=== PATIENT | male | born 1945 | race Caucasian/White ===

== ENCOUNTER 2016-09-04 10:17 | Emergency (ER) | payer OTHER, MEDICARE ==
[2016-09-04 10:24] VITALS: TEMP 98.4
--- NOTE | 2016-09-04 10:59 | EDPHY ---
H & P Time Seen by Provider: 09/04/16 10:53 HPI/ROS: CHIEF COMPLAINT: Chills, fever HISTORY OF PRESENT ILLNESS: This patient is a 70 year old male complaining of fever and chills onset Saturday morning, four days ago. He went on a 6 mile trail run that morning with friends, and began to feel unwell at breakfast with chills and loss of appetite. On his way home, he took a wrong turn, which he has never done before. Since then, he has had two episodes per day of chills and headache, each lasting about two hours. He feels well between episodes. He endorses reduced appetite. Last night, he felt well before bed around 20:00, but woke around midnight with another episode of chills. No nausea, chest pain, shortness of breath. He has travelled recently to [place] and [place] in June, two months ago. REVIEW OF SYSTEMS: Constitutional: Fever, chills Eyes: No visual changes ENT: No sore throat Respiratory: No cough, no shortness of breath Cardiac: No chest pain Gastrointestinal: No nausea, no vomiting, no abdominal pain Genitourinary: No hematuria, no dysuria Musculoskeletal: No leg pain or swelling Skin: No rash Neurological: No headache, no numbness, no weakness Psychiatric: No depression Past Medical/Surgical History: Right foot surgery. Social History: at bedside Smoking Status: Never smoked Physical Exam: General Appearance: Alert, well appearing, no distress Eyes: Pupils equal and round, no conjunctival pallor or injection ENT, Mouth: Mucous membranes moist Neck: Normal inspection Respiratory: Lungs are clear to auscultation Cardiovascular: Regular rate and rhythm Gastrointestinal: Abdomen is soft and non- tender Neurological: A&O, nonfocal, normal gait Skin: Warm and dry, no rash Extremities: Nontender, no pedal edema Psychiatric: Mood and affect normal Constitutional: Initial Vital Signs Temperature (C) 36.9 C 09/04/16 10:21 Heart Rate 76 09/04/16 10:21 Respiratory Rate 20 09/04/16 10:21 Blood Pressure 116/80 09/04/16 10:21 O2 Sat (%) 95 09/04/16 10:21 O2 Delivery Mode Room Air Allergies/Adverse Reactions: No Known Allergies Allergy (Unverified 09/04/16 10:21) Home Medications: Medication Instructions Recorded NK [No Known Home Meds] 09/04/16 Medical Decision Making - Diagnostics Imaging Results: Imaging Impressions Chest X-Ray 09/04/16 10:54 Impression: 1. Mild bronchitis. 2. COPD. 3. No definite pneumonia. ED Course/Re-evaluation: This patient presents with a four-day history of fever and chills. He has no localizing signs on exam. He traveled to [facility] in June. I reviewed [facility] website: no malaria in [place]. I do not suspect another travel rated illness. Plan for chest x-ray and labs including CBC, BMP, UA. Chest x-ray negative for pneumonia. Urinalysis unremarkable. CBC shows a normal white blood cell count with predominance of monocytes, consistent with a viral syndrome. I feel that he is safe and stable for discharge home. Will follow up with his primary care physician in 1-2 days for recheck. Differential Diagnosis: The differential diagnosis for the patient's fever included but was not limited to pneumonia, urinary tract infection, viral syndrome, meningitis, and sepsis. - Data Points Laboratory Results: Laboratory Results 09/04/16 10:40 09/04/16 10:40 09/04/16 09/04/16 09/04/16 10:45 10:40 10:40 WBC 5.91 10^3/uL 10^3/uL (3.80-9.50) RBC 5.00 10^6/uL 10^6/uL (4.40-6.38) Hgb 15.4 g/dL g/dL (13.7-17.5) Hct 44.6 % % (40.0-51.0) MCV 89.2 fL fL (81.5-99.8) MCH 30.8 pg pg (27.9-34.1) MCHC 34.5 g/dL g/dL (32.4-36.7) RDW 13.7 % % (11.5-15.2) Plt Count 113 10^3/uL L 10^3/uL (150-400) MPV 12.0 fL H fL (8.7-11.7) Neut % (Auto) 67.8 % % (39.3-74.2) Lymph % (Auto) 14.0 % L % (15.0-45.0) [place] % (Auto) 16.2 % H % (4.5-13.0) Eos % (Auto) 0.5 % L % (0.6-7.6) Baso % (Auto) 1.0 % % (0.3-1.7) Nucleat RBC Rel Count 0.0 % % (0.0-0.2) Absolute Neuts (auto) 4.00 10^3/uL 10^3/uL (1.70-6.50) Absolute Lymphs (auto) 0.83 10^3/uL L 10^3/uL (1.00-3.00) Absolute Monos (auto) 0.96 10^3/uL H 10^3/uL (0.30-0.80) Absolute Eos (auto) 0.03 10^3/uL 10^3/uL (0.03-0.40) Absolute Basos (auto) 0.06 10^3/uL 10^3/uL (0.02-0.10) Absolute Nucleated RBC 0.00 10^3/uL 10^3/uL (0-0.01) Immature Gran % 0.5 % % (0.0-1.1) Immature Gran # 0.03 10^3/uL 10^3/uL (0.00-0.10) Sodium 139 mEq/L mEq/L (134-144) Potassium 4.0 mEq/L mEq/L (3.5-5.2) Chloride 100 mEq/L mEq/L (97-110) Carbon Dioxide 21 mEq/l L mEq/l (22-31) Anion Gap 18 mEq/L H mEq/L (8-16) BUN 22 mg/dL mg/dL (7-23) Creatinine 1.2 mg/dL mg/dL (0.7-1.3) Estimated GFR 60 Glucose 124 mg/dL H mg/dL (70-100) Calcium 9.4 mg/dL mg/dL (8.5-10.4) Urine Color YELLOW Urine Appearance HAZY Urine pH 5.0 (5.0-7.5) Ur Specific [place] 1.025 (1.002-1.030) Urine Protein 1+ H (NEGATIVE) Urine Ketones NEGATIVE (NEGATIVE) Urine Blood 2+ H (NEGATIVE) Urine Nitrate NEGATIVE (NEGATIVE) Urine Bilirubin NEGATIVE (NEGATIVE) Urine Urobilinogen NEGATIVE EU EU (0.2-1.0) Ur Leukocyte Esterase NEGATIVE (NEGATIVE) Urine RBC 1-3 /hpf /hpf (0-3) Urine WBC 1-3 /hpf /hpf (0-3) Ur Epithelial Cells NONE SEEN /lpf /lpf (NONE-1+) Urine Mucus 2+ /lpf H /lpf (NONE-1+) Urine Glucose NEGATIVE (NEGATIVE) Departure - Departure Disposition: Home, Routine, Self-Care Clinical Impression: Fever Qualifiers: Fever type: unspecified Qualified Code(s): R50.9 - Fever, unspecified Condition: Good Instructions: Fever in Adults (ED) Additional Instructions: Ibuprofen 600 mg 3 times daily while the fever persists. Referrals: ABE TRACY [Primary Care Provider] - 1-2 days without fail Report Scribed for: Jocy Montes Report Scribed by: Enid Mccormack Date of Report: 09/04/16 Time of Report: 11:49 Physician Review and Approval Statement: 09/04/16 11:50 Portions of this note were transcribed by a medical device sales. I personally performed a history, physical exam, medical decision making, and confirmed accuracy of information the transcribed note.
[2016-09-04 11:02] LABS: % IMMATURE GRANULYOCYTES 0.5 % (0.0-1.1); ABSOLUTE IMMATURE GRANULOCYTES 0.03 10^3/uL (0.00-0.10); ADD DIFF? NO; ADD MORPH? NO; ADD SCAN? NO; ATYPICAL LYMPHOCYTE FLAG 0 (0-99); FRAGMENT RBC FLAG 0 (0-99); HEMATOCRIT 44.6 % (40.0-51.0); HEMOGLOBIN 15.4 g/dL (13.7-17.5); LEFT SHIFT FLG 10 (0-99); LIPEMIA HEMOLYSIS FLAG 90 (0-99); MEAN CELL HEMOGLOBIN 30.8 pg (27.9-34.1); MEAN CELL HEMOGLOBIN CONCENTR. 34.5 g/dL (32.4-36.7); MEAN CELL VOLUME 89.2 fL (81.5-99.8); PLATELET CLUMPS FLAG 0 (0-99); PLATELET COUNT 113 10^3/uL (150-400); RED CELL DISTRIBUTION WIDTH 13.7 % (11.5-15.2)
[2016-09-04 11:20] LABS: ANION GAP 18 mEq/L (8-16); CALCIUM 9.4 mg/dL (8.5-10.4); CARBON DIOXIDE 21 mEq/l (22-31); CHLORIDE 100 mEq/L (97-110); CREATININE 1.2 mg/dL (0.7-1.3); GLOMERULAR FILTRATION RATE 60; GLUCOSE 124 mg/dL (70-100); SODIUM 139 mEq/L (134-144)
[2016-09-04 12:18] LABS: COLOR YELLOW; LEUKOCYTE ESTERASE,URINE NEGATIVE (NEGATIVE); NITRITE,URINE NEGATIVE (NEGATIVE)
[2016-09-04 13:02] LABS: MUCUS 2+ /lpf (NONE-1+)
[2016-09-04 13:49] VITALS: BP 118/74; PULSE 80; RESP 14; O2SAT 94
== END 2016-09-04 13:48 | disposition home or self-care (01) ==
DX: R50.9 Fever, unspecified (principal)

== ENCOUNTER 2016-09-07 11:21 | Emergency (ER) | payer OTHER, MEDICARE ==
[2016-09-07 11:27] VITALS: RESP 16
[2016-09-07 11:48] LABS: % IMMATURE GRANULYOCYTES 0.7 % (0.0-1.1); ABSOLUTE IMMATURE GRANULOCYTES 0.04 10^3/uL (0.00-0.10); ADD DIFF? NO; ADD MORPH? NO; ADD SCAN? YES; FRAGMENT RBC FLAG 0 (0-99); HEMATOCRIT 38.7 % (40.0-51.0); HEMOGLOBIN 13.8 g/dL (13.7-17.5); LEFT SHIFT FLG 20 (0-99); LIPEMIA HEMOLYSIS FLAG 90 (0-99); MEAN CELL HEMOGLOBIN 30.5 pg (27.9-34.1); MEAN CELL HEMOGLOBIN CONCENTR. 35.7 g/dL (32.4-36.7); MEAN CELL VOLUME 85.6 fL (81.5-99.8); PLATELET CLUMPS FLAG 0 (0-99); PLATELET COUNT 105 10^3/uL (150-400); RED BLOOD CELL COUNT 4.52 10^6/uL (4.40-6.38); RED CELL DISTRIBUTION WIDTH 13.9 % (11.5-15.2)
[2016-09-07 11:52] LABS: ATYPICAL LYMPHOCYTE FLAG 300 (0-99)
[2016-09-07 12:00] LABS: COLOR YELLOW; LEUKOCYTE ESTERASE,URINE NEGATIVE (NEGATIVE); NITRITE,URINE NEGATIVE (NEGATIVE)
[2016-09-07 12:02] LABS: INR 1.25 (0.83-1.16); PROTIME(PATIENT) 15.7 SEC (12.0-15.0)
[2016-09-07 12:03] LABS: ANION GAP 15 mEq/L (8-16); APTT 32.1 SEC (23.0-38.0); CALCIUM 8.7 mg/dL (8.5-10.4); CARBON DIOXIDE 19 mEq/l (22-31); CHLORIDE 100 mEq/L (97-110); CREATININE 1.2 mg/dL (0.7-1.3); GLOMERULAR FILTRATION RATE 60; GLUCOSE 156 mg/dL (70-100); POTASSIUM 4.2 mEq/L (3.5-5.2); SODIUM 134 mEq/L (134-144)
[2016-09-07 12:05] LABS: MUCUS TRACE /lpf (NONE-1+)
--- NOTE | 2016-09-07 12:11 | EDPHY ---
H & P Stated Complaint: fever fatigue for 6 days pt not taken anything for fever Source: Patient Exam Limitations: No limitations - Personal History Current Tetanus/Diphtheria Vaccine: Unsure Current Tetanus Diphtheria and Acellular Pertussis (TDAP): Unsure - Medical/Surgical History Hx Asthma: No Hx Chronic Respiratory Disease: No Hx Diabetes: No Hx Cardiac Disease: No Hx Renal Disease: No Hx Cirrhosis: No Hx Alcoholism: No Hx HIV/AIDS: No Hx Splenectomy or Spleen Trauma: No Other PMH: r foot surgery - Social History Smoking Status: Never smoked Time Seen by Provider: 09/07/16 11:38 HPI/ROS: CHIEF COMPLAINT: Fatigue, fever HISTORY OF PRESENT ILLNESS: The patient presents to the ED with a one-week history of fatigue and fever. The patient reports his symptoms began after running. He began to feel sick on Saturday. Since that time he has had poor appetite, fever, bouts of confusion and disorientation, severe headache and general malaise. The patient denies specific complaints such as cough, vomiting , diarrhea, dysuria or abdominal pain. The patient reports normal urine output. The patient traveled [place] in June. The patient did have some spider bites to his leg 1/2 weeks ago which resolved without complication. The patient denies acute arthralgias. REVIEW OF SYSTEMS: A comprehensive 10 point review of systems is otherwise negative aside from elements mentioned in the history of present illness. (Eric Mejia) - Physical Exam Exam: General Appearance: Alert, no distress Eyes: Pupils equal and round no pallor or injection ENT, Mouth: Mucous membranes moist Respiratory: There are no retractions, lungs are clear to auscultation Cardiovascular: Regular rate and rhythm Gastrointestinal: Abdomen is soft and nontender, no masses, bowel sounds normal Neurological: A&O, normal motor function, normal sensory exam, normal cranial nerves Skin: Warm and dry, no rashes Musculoskeletal: Mild meningeal symptoms, discomfort with forced flexion is appreciated Extremities: symmetrical, full range of motion Psychiatric: Patient is oriented X 3, there is no agitation (Eric Mejia) Constitutional: Initial Vital Signs Temperature (C) 39.2 C H 09/07/16 11:25 Heart Rate 90 09/07/16 11:25 Respiratory Rate 16 09/07/16 11:25 Blood Pressure 132/68 H 09/07/16 11:25 O2 Sat (%) 94 09/07/16 11:25 O2 Delivery Mode Room Air Allergies/Adverse Reactions: No Known Allergies Allergy (Unverified 09/04/16 10:21) Home Medications: Medication Instructions Recorded Hydrocodone/APAP /325 [[place] 1 - 2 tab PO Q4H PRN #15 tab 09/07/16 5/325] Medical Decision Making Procedures: Procedure: Lumbar puncture. Indication: headache After verbal informed consent from patient explaining the risks including infection, bleeding, and neurologic damage, a lumbar puncture was performed after the patient was prepped and draped in the usual fashion. The back was anesthetized with 1% lidocaine. Approximately 4 cc of clear fluid was obtained. Opening pressure was not obtained. There were no complications. The procedure was performed by myself. (Eric Mejia) ED Course/Re-evaluation: This patient was seen by Dr. Calixto Dhaliwal. Dr. Dhaliwal feels that this patient has a viral syndrome. The patient was offered admission and declined. He would like to go home. I wrote a prescription for [place] for management of headache. Patient will follow up in the office with Dr. Dhaliwal. (Jocy Montes) The patient presents to the ED with a one-week history with fever without source. The patient arrives have blood cultures x2 obtained. The patient has no localizing symptoms on exam aside from mild meningeal symptoms. The patient was taken for a noncontrast head CT scan which demonstrated a vague hypodensity of uncertain significance. The patient was noted to have elevated liver function test. The done specific hypodensity on the CT scan was followed up with a MRI which demonstrated no evidence of an epidural mass, abscess or other acute infectious process. Given the patient's complaint of headache, fever neck pain he was verbally consented to undergo lumbar puncture. This was performed by myself without complication. At this point time, the patient presents to the ED with what appears to be a likely viral syndrome. I have added on West Nile virus and EBV serology. Consultation was made with Dr. Calixto Dhaliwal from Infectious Disease. Patient will be discharged home with instructions to follow up with Dr. Dhaliwal. He is given customary aftercare and return precautions. (Eric Mejia) Differential Diagnosis: Differential diagnosis considered includes bacteremia, meningitis, influenza, viral syndrome, Ebstein [place] virus, West Nile virus, epidural abscess (Eric Mejia) - Data Points Laboratory Results: Laboratory Results 09/07/16 11:40 09/07/16 11:40 Microbiology Results: MICROBIOLOGY 09/07/16 15:20 Cerebral Spinal Fluid Gram Stain - Final 09/07/16 15:20 Cerebral Spinal Fluid CSF Culture - Preliminary 09/07/16 11:40 Blood Blood Culture - Preliminary Medications Given: Discontinued Medications Acetaminophen (Tylenol) 1,000 mg PO EDNOW ONE Stop: 09/07/16 14:31 Last Admin: 09/07/16 14:31 Dose: 1,000 mg Departure - Departure Disposition: Home, Routine, Self-Care Clinical Impression: Viral syndrome Condition: Good Instructions: Viral Syndrome (ED) Additional Instructions: [place] contains Tylenol. Do not take [place] and Tylenol at the same time. Referrals: Calixto Dhaliwal MD [Medical Doctor] - 09/10/16 2:30 pm Prescriptions: Hydrocodone/APAP 5/325 [[place] 5/325] 1 - 2 tab PO Q4H PRN #15 tab PRN Reason: Pain, Moderate
[2016-09-07 12:26] LABS: ALBUMIN 3.4 g/dL (3.5-5.0); BILIRUBIN,TOTAL 1.2 mg/dL (0.1-1.4); BILIRUBIN-CONJUGATED 0.5 mg/dL (0.0-0.5); BILIRUBIN-UNCONJUGATED 0.7 mg/dL (0.0-1.1); TOTAL PROTEIN 6.2 g/dL (6.3-8.2)
[2016-09-07 12:39] LABS: SCAN POSITIVE
[2016-09-07 12:47] LABS: PLATELET ESTIMATE DECREASED (ADEQ)
[2016-09-07] MEDS ORDERED: ACETAMINOPHEN 500 MG TAB ONE (14:29)
[2016-09-07] MEDS ORDERED: ACETAMINOPHEN 500 MG TAB PO ONE (14:30)
[2016-09-07] MEDS ORDERED: GADOBUTROL 10 ML VIAL IVP ONE (14:38)
[2016-09-07 15:59] LABS: CSF APPEARANCE CLEAR (CLEAR); CSF COLOR COLORLESS (COLORLESS); CSF SUPERNATANT COLORLESS (COLORLESS); PROTEIN, CSF 27 mg/dL (12-60); WBC, CSF 3 /mm3 (0-5)
[2016-09-07 16:39] LABS: CSF APPEARANCE CLEAR (CLEAR); CSF COLOR COLORLESS (COLORLESS); CSF SUPERNATANT COLORLESS (COLORLESS)
[2016-09-07 16:40] LABS: WBC, CSF 0 /mm3 (0-5)
[2016-09-07 18:14] VITALS: BP 112/76; PULSE 72; TEMP 100.4; O2SAT 93
[2016-09-07 20:22] LABS: MALARIAL PREP NONE SEEN (NONE SEEN)
--- NOTE | 2016-09-07 23:11 | GCON ---
[f rep st] CONSULTATION DATE OF CONSULTATION: 09/07/2016 REFERRING PHYSICIAN: Eric Mejai MD REASON FOR CONSULTATION: Fever of unknown origin. HISTORY OF PRESENT ILLNESS: The patient is a 70-year-old male without significant past medical hist ory, who I am asked to see in the emergency department for Infectious Disease consultation related t o fever of unknown origin. The patient describes developing abrupt onset of fever and rigors approx imately 6 days ago after going on his usual run in the morning. He subsequently went to have breakf ast and developed the abrupt onset of fever and rigors. Subsequently, he has experienced persistent fever, rigors and significant headache. He also has had anorexia and night sweats. When fever is present, he has had some confusion but this generally is absent when fever resolves. He has not not ed cough, shortness of breath, nausea, vomiting, diarrhea, urinary tract symptoms, skin rash, visual change, or recent dental work/dental problems. The patient does describe developing some insect bi lina over the lower extremities when he was working on his house in the last 2 weeks. The patient do es describe approximately 2 weeks ago working in a crawl space where significant rodent activity was present. He also freed a snake from a live trap at that point in time. He also describes picking up a snake skin on 1 of his runs recently. He has not had any contact with any animal carcasses suc h as rabbits, squirrels or chipmunks. No unusual animal contact other than he did go to a [employer] [facility] in the last few weeks. He did travel to [place] and [place] approximately 2 months ago. He has not noted any tick bites. He does not note significant mosquito bites. He [place] [address] [place]. He does have a 2-year-old granddaughter whom he visited with on August 28. S he was noted to have URI symptoms at that point in time. He has not received any antibiotic therapy . He was seen in the emergency department on 09/04/2016 for the above complaints with mild thrombocyto penia noted on CBC. Findings were felt to be compatible with a viral syndrome and he was managed co nservatively. 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 Lumbar puncture was performed showing zero white blood cells and 5 red blood cells in tube 4 with protein of 27 and glucose of 78. Gram stain was negative. Other laboratory abnormalities included thrombocytopenia and elevated aminotransferases. Given the above findings, I am now asked to assist in his ongoing management. PAST MEDICAL HISTORY: Unremarkable. PAST SURGICAL HISTORY: Unremarkable. MEDICATIONS: Prior to admission include Excedrin. ALLERGIES: No known drug allergies. SOCIAL HISTORY: Patient does not smoke, drink alcohol or use drugs. Travel history and exposures a s outlined above. FAMILY HISTORY: Unremarkable. REVIEW OF SYSTEMS: Unless noted in the HPI, remainder of a 10 system review is unremarkable. PHYSICAL EXAMINATION: VITAL SIGNS: Temperature maximum 39.6, temperature current 38.0, heart rate 72, respiratory rate 16, blood pressure 112/76, oxygen saturation 93% on room air. GENERAL: Sweta mathias is fatigued-appearing in no acute distress and appears nontoxic. HEENT: There is no scleral icte frida, conjunctival injection, or conjunctival petechiae. Oropharynx shows no lesions with dentition in fair repair. Mucous membranes are dry. There is no nasal discharge. There is no tenderness ove r the frontal, maxillary or mastoid area. NECK: Supple without lymphadenopathy or palpable thyrome veronica. CHEST: Clear to auscultation bilaterally without adventitious sounds. Respiratory effort is normal. CARDIOVASCULAR: Regular rate and rhythm without murmurs, gallops, or rubs. ABDOMEN: Sof t, nontender, nondistended. There is no palpable organomegaly. Bowel sounds are present. MUSCULOS KELETAL: There is no cyanosis, clubbing or edema. SKIN: No rash is noted. No stigmata of endocar ditis. The skin is warm and dry to touch. NEUROLOGIC: Patient is alert and interacts appropriatel y with examiner. Cranial nerves 2 through 12 are grossly intact. Sensation is grossly intact. Mus corrie tone and bulk are normal. LYMPHATICS: There are no cervical, supraclavicular or epitrochlear no cristina palpable. LABORATORY DATA: White blood cell count 5.8, hematocrit 38.7, platelets 105, neutrophils 67%, lymph ocytes 22%, 2+ atypical lymphocytes present. Serum creatinine is 1.2. AST 561, ALT 464. Bilirubin 1.2, alkaline phosphatase 98, albumin 3.4. INR 1.3. Lactic acid is 1.4. Urinalysis shows 1-3 whi te blood cells and 1-3 red blood cells. CSF as outlined in history of present illness. West Nile v irus and EBV antibody profiles are pending; hepatitis A IgM is negative. Blood cultures are pending . CT and MRI findings as outlined above. Chest x-ray shows no evidence of pneumonia. IMPRESSION: Fever with thrombocytopenia and liver enzyme abnormalities with associated atypical lym phocytosis: Most likely, this will be of viral etiology with considerations including EBV, CMV, and West Nile virus. He does have exposure to some mouse activity raising consideration of hantavirus which we have seen causing fever and thrombocytopenia in the absence of pulmonary or renal findings. Enterovirus would be also of consideration. Less likely etiologies such as tularemia would be of consideration but not typically associated with atypical lymphocytes. Given residence [place] [place], relapsing fever due to Borrelia is also a possibility. I do not think this is related to his recen t travel to [place]. Given probability that this is a viral etiology, favor continued observation off antibiotics with co ntinued followup of serologies over time. Discussed with patient consideration for inpatient admiss ion versus continued outpatient care and he favors latter. RECOMMENDATIONS: 1. Observe off antibiotics. 2. Follow up EBV and West Nile virus antibodies. 3. Check CMV IgM/IgG, hantavirus antibody, peripheral blood smear for spirochetes and tularemia ant ibody. 4. Follow up blood cultures and CSF cultures over time. 5. Patient will follow up with me in the office on 09/10/2016 for ongoing care. 6. Advised patient to notify me for any change in symptomatology or progressive symptoms. Above findings and plan were discussed with Dr. Montes in the emergency room today. Thank you for this consultation. We will continue to follow the patient as an outpatient. /[id number]/MODL
[2016-09-10 09:38] LABS: ANTI EBNA Positive (Negative); ANTI VCA/IgG Positive (Negative); ANTI VCA/IgM Negative (Negative)
[2016-09-10 18:17] LABS: INTERPRETATION See Comments; WEST NILE VIRUS IGG Negative (Negative); WEST NILE VIRUS IGM Negative (Negative)
[2016-09-11 16:46] LABS: FRANCISELLA (TULAREMIA) AB <1:20
[2016-09-12 16:53] LABS: HANTAVIRUS IGG <2.00; HANTAVIRUS IGM <2.00
== END 2016-09-07 18:12 | disposition home or self-care (01) ==
PROC: 009U3ZX Drainage of Spinal Canal, Percutaneous Approach, Diagnostic (ICD-10-PCS; principal; 2016-09-07)
DX: B34.9 Viral infection, unspecified (principal)
CPT/HCPCS: 62270; 70450; 70553; 71010; 99285; A9585; 86644-90; 86645-90; 86664-90; 86665-90; 86668-90; 86709-90; 86790-90; G0472

== ENCOUNTER → 2016-10-26 | Outpatient (CLI) | payer OTHER, MEDICARE | LOC: CIMAGING 10:25 | PROVIDERS: ATTEND Internal Medicine Hematology & Oncology | DX: I82.611 Acute embolism and thrombosis of superficial veins of right upper extremity (principal); M79.89 Other specified soft tissue disorders | CPT/HCPCS: 93971-PO ==

== ENCOUNTER 2018-04-09 09:22 | Inpatient (IN) | payer OTHER, MEDICARE ==
--- NOTE | 2018-04-09 09:47 | EDPHY ---
HPI/HX/ROS/PE/MDM Narrative: CHIEF COMPLAINT: Left rib pain HPI: This patient is a healthy 72 year old male. He complains today of left-sided chest pain beginning Saturday and states "I thought I had sprung a rib". He notes that 15 years ago he had pneumonia and his chest felt similar at that time. He has a pulse oximeter at home and measured his SpO2 in the 80s so presents for evaluation. He denies cough or fever. He has not seen his primary care provider as he does not have care established currently. He denies any recent injuries or trauma, but was doing some heavy yard work on Saturday prior to the onset of symptoms. He denies any history of known heart or lung problems. No hemoptysis. No nausea, vomiting, abdominal pain, diarrhea, urinary complaints, or other associated symptoms. REVIEW OF SYSTEMS: A comprehensive 10 system review of systems is otherwise negative aside from elements mentioned in the history of present illness and medical decision making. PMH: Denies. SOCIAL HISTORY: . Retired. Lives in [place]. PHYSICAL EXAM: General:Patient is alert, in no acute distress. ENT:Eyes are normal to inspection. ENT inspection normal. Neck: Normal inspection. Full range of motion. Respiratory:No respiratory distress. Breath sounds normal bilaterally. Cardiovascular: Regular rate and rhythm. Strong peripheral pulses. Normal cap refill. No tenderness to palpation, no lesions. Abdomen:The abdomen is nontender to palpation. There are no peritoneal signs. There are normal bowel sounds. Back: Normal to inspection. No tenderness to palpation. Skin: Normal color. No rash. Warm and dry. Extremities: Normal appearance. Full range of motion. Neuro: Oriented x3. Normal motor function. Normal sensory function. ED Course: 72 y/o male presents with four day history of left-sided chest pain. Exam largely unremarkable, chest is non-tender, no lesions. Plan for chest x-ray, labs including CBC, chemistries, troponin. CXR negative for pneumonia. Plan to proceed with CTA chest to r/o PE or other acute processes. 12:[address] Ventura, radiologist. CTA shows bilateral PEs. Reassessed patient. Discussed imaging results. Patient notes he did have pain in his right leg over the weekend. Plan for US for further evaluation. Additionally, patient states he does not have care established with any primary care provider and it seems he would have considerable difficulty with outpatient followup at this time. We discussed admission for followup and anticoagulation management. The patient is amenable to this. 12:43 Spoke with hospitalist service. Dr. Huffman accepts admission for bilateral pulmonary emboli. 13:[address] Daley, radiologist. US shows acute DVT in R leg. - Data Points Imaging Results: Imaging Impressions Chest X-Ray 04/09/18 09:48 Impression: 1. Mild left lower lobe infiltrate/pneumonia with small left effusion Chest/Thorax CTA 04/09/18 11:16 Impression: 1. Moderate volume of acute thrombopulmonary embolic disease involving bilateral lower lobes and right middle lobe. 2. No saddle embolism or evidence of right heart strain. 3. Bibasilar atelectasis and trace left pleural effusion. Findings discussed with Emergency Department physician, Carlton Saravia MD, on 04/09/2018 at 12:27 p.m. Extremity Venous Study 04/09/18 12:35 Impression: Acute DVT in the right knee and calf. Results discussed with Dr. Carlton Saravia at 1:26 PM. Imaging: Discussed imaging studies w/ supervisor forming and tempering Radiologist, I viewed and interpreted images myself Laboratory Results: Laboratory Results 04/09/18 10:35 04/09/18 10:35 04/09/18 04/09/18 04/09/18 11:20 10:42 10:35 WBC RBC Hgb POC Hgb 16.0 gm/dL gm/dL (13.7-17.5) Hct POC Hct 47 % % (40-51) MCV MCH MCHC RDW Plt Count MPV Neut % (Auto) Lymph % (Auto) [place] % (Auto) Eos % (Auto) Baso % (Auto) Nucleat RBC Rel Count Absolute Neuts (auto) Absolute Lymphs (auto) Absolute Monos (auto) Absolute Eos (auto) Absolute Basos (auto) Absolute Nucleated RBC Immature Gran % Immature Gran # POC Sodium 138 mEq/L mEq/L (135-145) Sodium 136 mEq/L mEq/L (135-145) POC Potassium 4.1 mEq/L mEq/L (3.3-5.0) Potassium 4.5 mEq/L mEq/L (3.5-5.2) POC Chloride 100 mEq/L mEq/L (97-110) Chloride 101 mEq/L mEq/L (97-110) Carbon Dioxide 26 mEq/l mEq/l (22-31) POC Total CO2 26 mEq/L mEq/L (22-31) Anion Gap 9 mEq/L mEq/L (6-14) POC BUN 17 mg/dL mg/dL (7-23) BUN 19 mg/dL mg/dL (7-23) Creatinine 1.0 mg/dL mg/dL (0.7-1.3) POC Creatinine 1.1 mg/dL mg/dL (0.7-1.3) Estimated GFR > 60 Glucose 114 mg/dL H mg/dL (70-100) POC Glucose 122 mg/dL H mg/dL (70-100) Calcium 9.3 mg/dL mg/dL (8.5-10.4) POC Troponin I 0.00 ng/mL ng/mL (0.00-0.08) 04/09/18 10:35 WBC 13.00 10^3/uL H 10^3/uL (3.80-9.50) RBC 5.05 10^6/uL 10^6/uL (4.40-6.38) Hgb 15.5 g/dL g/dL (13.7-17.5) POC Hgb Hct 45.7 % % (40.0-51.0) POC Hct MCV 90.5 fL fL (81.5-99.8) MCH 30.7 pg pg (27.9-34.1) MCHC 33.9 g/dL g/dL (32.4-36.7) RDW 13.6 % % (11.5-15.2) Plt Count 132 10^3/uL L 10^3/uL (150-400) MPV 12.5 fL H fL (8.7-11.7) Neut % (Auto) 83.3 % H % (39.3-74.2) Lymph % (Auto) 7.8 % L % (15.0-45.0) [place] % (Auto) 7.9 % % (4.5-13.0) Eos % (Auto) 0.2 % L % (0.6-7.6) Baso % (Auto) 0.4 % % (0.3-1.7) Nucleat RBC Rel Count 0.0 % % (0.0-0.2) Absolute Neuts (auto) 10.82 10^3/uL H 10^3/uL (1.70-6.50) Absolute Lymphs (auto) 1.02 10^3/uL 10^3/uL (1.00-3.00) Absolute Monos (auto) 1.03 10^3/uL H 10^3/uL (0.30-0.80) Absolute Eos (auto) 0.03 10^3/uL 10^3/uL (0.03-0.40) Absolute Basos (auto) 0.05 10^3/uL 10^3/uL (0.02-0.10) Absolute Nucleated RBC 0.00 10^3/uL 10^3/uL (0-0.01) Immature Gran % 0.4 % % (0.0-1.1) Immature Gran # 0.05 10^3/uL 10^3/uL (0.00-0.10) POC Sodium Sodium POC Potassium Potassium POC Chloride Chloride Carbon Dioxide POC Total CO2 Anion Gap POC BUN BUN Creatinine POC Creatinine Estimated GFR Glucose POC Glucose Calcium POC Troponin I Medications Given: Discontinued Medications Enoxaparin Sodium (Lovenox) 80 mg SC EDNOW ONE Stop: 04/09/18 12:38 Last Admin: 04/09/18 13:41 Dose: 80 mg Point of Care Test Results: Chemistry 04/09/18 04/09/18 11:20 10:42 POC Sodium 138 mEq/L mEq/L (135-145) POC Potassium 4.1 mEq/L mEq/L (3.3-5.0) POC Chloride 100 mEq/L mEq/L (97-110) POC Total CO2 26 mEq/L mEq/L (22-31) POC BUN 17 mg/dL mg/dL (7-23) POC Creatinine 1.1 mg/dL mg/dL (0.7-1.3) POC Glucose 122 mg/dL H mg/dL (70-100) POC Troponin I 0.00 ng/mL ng/mL (0.00-0.08) ISTAT H&H 04/09/18 11:20 POC Hgb 16.0 gm/dL gm/dL (13.7-17.5) POC Hct 47 % % (40-51) General Time Seen by Provider: 04/09/18 09:39 Initial Vital Signs: Initial Vital Signs Temperature (C) 36.7 C 04/09/18 09:36 Heart Rate 83 04/09/18 09:36 Respiratory Rate 18 04/09/18 09:36 Blood Pressure 134/74 H 04/09/18 09:36 O2 Sat (%) 92 04/09/18 09:36 O2 Delivery Mode Nasal Cannula O2 (L/minute) 1.5 Allergies/Adverse Reactions: No Known Allergies Allergy (Verified 04/09/18 09:36) Home Medications: Medication Instructions Recorded Lactase [Lactase 3000 Unit (*)] 3,000 unit PO DAILY PRN 04/09/18 Multivitamins [Multivitamin (*)] 1 each PO DAILY 04/09/18 Apixaban [Eliquis 30-day Starter 1 kit PO AD #1 kit 04/10/18 Pack] Departure - Departure Disposition: [facility] Inpatient Acute Clinical Impression: Pulmonary embolism, bilateral Right leg DVT Qualifiers: Affected thrombotic vein of extremity: unspecified vein of extremity Chronicity : acute Qualified Code(s): I82.401 - Acute embolism and thrombosis of unspecified deep veins of right lower extremity Condition: Fair Report Scribed for: Carlton Saravia Report Scribed by: Enid Mccormack Date of Report: 04/09/18 Time of Report: 13:32 Physician Review and Approval Statement: Portions of this note were transcribed by an ED scribe. I personally performed the history, physical exam, and medical decision making; and confirm the accuracy of the information in the transcribed note.
[2018-04-09 11:32] LABS: PLATELET COUNT 132 10^3/uL (150-400)
[2018-04-09] MEDS ORDERED: IOHEXOL 350mgI/ML (OMNIPAQUE) 150 ML BTL IV ONE (11:53)
[2018-04-09] MEDS ORDERED: ENOXAPARIN 80 MG/0.8 ML SYR SC ONE (12:37)
[2018-04-09] MEDS ORDERED: LACTASE 3,000 UNIT TAB PO PRN (13:47)
[2018-04-09] MEDS ORDERED: ONDANSETRON 4 MG/2 ML VIAL IVP PRN (14:38)
[2018-04-09] MEDS ORDERED: oxyCODONE IR 5 MG TAB PO PRN (14:38)
[2018-04-09] MEDS ORDERED: ONDANSETRON DISINTEGRATING 4 MG TAB PO PRN (14:38)
--- NOTE | 2018-04-09 15:06 | GHP ---
[f rep st] HISTORY AND PHYSICAL DATE OF ADMISSION: 04/09/2018 CHIEF COMPLAINT: Left-sided chest pain. HISTORY OF PRESENT ILLNESS: This is a 72-year-old, relatively healthy man who presented to the ED with left-sided chest pain. Notably, he went for a 4-mile run on Saturday, during this he felt slightly more short of breath than normal. The following day, he notes that he had a little bit of pain in his calf as well as some left-sided pleuritic chest pain, which was nonradiating. It was not going away, thus he sought further medical attention. He called his primary care physician yesterday, who had changed offices and is no longer accepting Medicare, he thus presented to the emergency department today. He has had appropriate cancer screening. His last colonoscopy was when he was 69 years old. He was told he did not need further colonoscopies. He had a PSA checked at [address] [place] [address], which was 2.5. He has not had any recent fevers night sweats, or weight loss. PAST MEDICAL/SURGICAL HISTORY: 1. Fever of unknown origin two years ago. Thought to be viral. 2. Neuroma on his foot, which was resected. MEDICATIONS: Please see medication reconciliation. ALLERGIES: No known drug allergies. SOCIAL HISTORY: He rarely drinks alcohol. He does not smoke. FAMILY HISTORY: No blood clots. REVIEW OF SYSTEMS: A 10-point review of systems is conducted and is negative except per HPI. PHYSICAL EXAM: VITAL SIGNS: Blood pressure 120/84, heart rate is set at 68, respiration rate 20, saturating at 94% on 2 L. Temperature is 37.2. GENERAL: Mr. Mendez is a pleasant man who is resting comfortably in no acute distress. HEENT: Shows him to be normocephalic, atraumatic. CARDIOVASCULAR: Shows regular rate and rhythm. No murmurs, rubs, or gallops. PULMONARY: Shows him to be breathing comfortably. There is no increased work of breathing. His lungs are clear to auscultation bilaterally. ABDOMEN: Soft, nontender, nondistended. SKIN: Shows no rash. : Shows no [place]. NEUROLOGIC: Shows him to be alert and oriented x3. He is moving all extremities. PSYCHIATRIC: Shows normal mood and affect. LABS: Basic metabolic panel is normal. Troponin is negative. White count is 13, platelets are 132. DATA: 1. I reviewed his chart, including Dr. Saravia's note. 2. I reviewed his chest and thorax CT angiogram. This shows moderate volume of segmental pulmonary emboli in the bilateral lower lobes. 3. I reviewed his extremity venous study, ultrasound that showed DVT in the right knee and right calf. IMPRESSION: 1. Unprovoked pulmonary embolism/deep vein thrombosis. No clear instigating factors. He is normally quite active. Fortunately, he is hemodynamically stable with mild/borderline hypoxia. He received a dose of Lovenox in the ED. I will start him on Eliquis this evening. He has had routine cancer screening. I am not sure that there is any further workup to do at this point. We will refer him to follow up with his primary care. I think a duration of 3 months for his anticoagulation would be appropriate. We discussed the risks and benefits of anticoagulants including bleeding. 2. Cerebrovascular accident seen on his MRI. I reviewed his MRI from 2017 which showed, at that point, an old cerebrovascular accident. He should be on aspirin, but he should start this after he completes his course of Eliquis and I have informed him of this. Would refer him to primary care for a lipid panel in consideration of a statin. 3. Mild thrombocytopenia. This is chronic. We will recheck tomorrow to make sure this is not dropping significantly. 4. Leukocytosis, neutrophilic. Suspect this is stress in the setting of his PE. I do not think there are any signs or symptoms of an infection at this point. We will just recheck tomorrow. /[id number]/MODL MTDD
[2018-04-09] MEDS ORDERED: PNEUMOC 13-VAL CONJ-DIP CRM/PF 0.5 ML SYR (PREVNAR 13) IM ONE (16:18)
[2018-04-09] MEDS: APIXABAN 5 MG TAB PO SCH (20:04)
[2018-04-09] MEDS: ACETAMINOPHEN 325 MG TAB PO PRN (23:46)
--- NOTE | 2018-04-09 23:58 | HOSPPROG ---
Hospitalist Progress Note Assessment/Plan: XC: Notified by RN of two consecutive elevated temps of 38 and 38.1. Patient is admitted for PE, which could explain fever. He is asymptomatic aside from feeling warm. I will observe off of antibiotics for now and obtain blood cultures, UA, lactate, and procalcitonin. If worsening, will start CAP coverage. Objective: Vital Signs Temp Pulse Resp BP Pulse Ox 38.1 C 73 16 120/72 94 04/09/18 23:04 04/09/18 23:04 04/09/18 23:04 04/09/18 23:04 04/09/18 23:04 04/08/18 04/09/18 04/10/18 05:59 05:59 05:59 Intake Total 700 Output Total 50 Balance 650 ICD10 Worksheet Patient Problems: Problems Problem Status Onset Pulmonary embolism, bilateral Acute Right leg DVT Acute
[2018-04-10] MEDS: MELATONIN 3 MG TAB PO PRN ×2 (00:45→21:06)
[2018-04-10 05:20] LABS: PLATELET COUNT 134 10^3/uL (150-400)
[2018-04-10] MEDS: APIXABAN 5 MG TAB PO SCH ×2 (08:00→21:07)
--- NOTE | 2018-04-10 12:18 | HOSPPROG ---
Hospitalist Progress Note Assessment/Plan: # acute PE - HD stable - cont eliquis # fever - d/t clot burden vs occult infection - need to monitor cultures overnight # mild thrombocytopenia - stable, chronic Subjective: fever overnight; no N/V/cough/dysuria/diarrhea. still with pleuritic CP. no SOB. did not sleep well Objective: Vital Signs Temp Pulse Resp BP Pulse Ox 37.5 C 77 18 124/69 H 94 04/10/18 11:48 04/10/18 11:48 04/10/18 11:48 04/10/18 11:48 04/10/18 11:48 Laboratory Results 04/10/18 04:40 04/09/18 04/10/18 04/11/18 05:59 05:59 05:59 Intake Total 1300 Output Total 250 Balance 1050 high risk with fever and PE - Physical Exam Constitutional: no apparent distress, appears nourished Cardiovascular: regular rate and rhythym, no murmur, rub, or gallop Respiratory: no respiratory distress, no rales or rhonchi, clear to auscultation Gastrointestinal: normoactive bowel sounds, soft, non-tender abdomen ICD10 Worksheet Patient Problems: Problems Problem Status Onset Pulmonary embolism, bilateral Acute Right leg DVT Acute
--- NOTE | 2018-04-10 12:28 | ASMTCMCOM ---
CM Note CM Note Notes: Pt admitted for PE, he is normally very active and lives independently. Pt will start on Eliquis, he was given a free 30 starter pack by our [facility]. Pt will dc home when medically stable, CM avialable for any changes. DC Plan: Independent Date Signed: 04/10/2018 12:27 PM Electronically Signed By:Jade Rosario RN
--- NOTE | 2018-04-10 15:46 | PDMN ---
Medical Necessity Medical necessity: Pt meets IP criteria as of 04/10/2018 per and [facility] ( Pulmonary Embolism); pt requiring another midnight as he has developed a new fever d/t clot burden vs occult infection; requiring further monitoring and workup.
[2018-04-10] MEDS: ACETAMINOPHEN 325 MG TAB PO PRN (16:42)
[2018-04-11 07:46] VITALS: BP 124/85
[2018-04-11] MEDS: APIXABAN 5 MG TAB PO SCH (08:11)
--- NOTE | 2018-04-11 10:14 | PDHOMEO2F ---
Home Oxygen Face to Face Home Orders: I certify that a physician or a nurse practitioner or physician's nurse practitioner physicians assistant has had a [id number] encounter with this patient on the date of this order due to the diagnosis listed, which relates to the primary reason the patient requires home oxygen. Alternative treatments have been tried, or considered, and deemed ineffective. It is anticipated that supplemental oxygen will result in improvement with treatment. Home oxygen qualifying diagnosis: pulmonary embolism SpO2 on room air (%): 86 Frequency of home oxygen needed: continuous Home oxygen liters per minute: 2 Home oxygen delivery device: nasal cannula Concentrator: Yes E-tanks for mobility and back up: Yes If ordering portable O2, is the patient mobile in the home?: Yes I certify that, based on these findings, the home oxygen is medically necessary for this patient for the following length of time. Length of time home oxygen needed: 3 months
--- NOTE | 2018-04-11 12:31 | GDS ---
[f rep st] DISCHARGE SUMMARY DIAGNOSES: 1. Acute pulmonary embolus. 2. Hypoxia. 3. Rhinovirus/Enterovirus. 4. Fever. 5. Mild thrombocytopenia. HOSPITAL COURSE: A 72-year-old man presented with left-sided pleuritic chest pain. He was found to have a pulmonary embolism. He was started on Lovenox, transitioned to Eliquis. He has been hemodyna mically stable, though he has been somewhat hypoxic. He had a few fevers, respiratory PCR was drawn and found to be positive for Rhinovirus/Enterovirus which is likely the cause of his fevers. His blo od cultures have been negative. He is discharged in stable condition. He will be placed on Eliquis with a higher dosing for 7 days. Decreasing to 10 mg p.o. twice daily thereafter. I suspect he will need 3 months of therapy. Could consider hypercoagulable workup as an outpatient. He has had appropriate cancer screening for his a ge. I had him ambulate without oxygen and he dropped his oxygen sats down to 86%. Thus, I have orde red him oxygen. FOLLOWUP: Primary care physician, Dr. Deirdre Salazar, for ongoing management of his anticoagulation. DISPOSITION: He is discharged home in stable condition with home oxygen ordered. BILLING: I spent more than 30 minutes on the day of discharge coordinating care. /[id number]/MODL
== END 2018-04-11 13:08 | disposition home or self-care (01) | DRG 176 ==
LOC: F3E 13:47 → OBSVTOIN 04-10 12:15
PROVIDERS: ADMIT Student in an Organized Health Care Education/Training Program; ATTEND Internal Medicine
DX: I26.99 Other pulmonary embolism without acute cor pulmonale (principal); I82.431 Acute embolism and thrombosis of right popliteal vein; R09.02 Hypoxemia; B97.89 Other viral agents as the cause of diseases classified elsewhere; B97.10 Unspecified enterovirus as the cause of diseases classified elsewhere; D69.6 Thrombocytopenia, unspecified; Z23 Encounter for immunization; Z86.73 Personal history of transient ischemic attack (TIA), and cerebral infarction without residual deficits; Z79.82 Long term (current) use of aspirin
CPT/HCPCS: 82435-PO; 82565-PO; 82947-PO; 84132-PO; 84295-PO; 84484-ER; 84520-PO; 85014-ER; G0008; G0009; G0378; J1650; Q9967